=== PATIENT | male | born 1960 | race Caucasian/White ===

== ENCOUNTER 2017-05-28 12:12 | Day surgery (SDC) | payer OTHER ==
[~2017-05-28] VITALS: Ht 180.3 cm; Wt 105.7 kg
[~2017-05-28 12:12] MED LIST: ADDERALL XR 2525 MG PO; AMLODIPINE BES2.5 MG PO; BACLOFEN10 MG PO; COLACE100 MG PO; DOXAZOSIN MESYLA2 MG PO; DULCOLAX5 MG PO; EPIPEN ADU0.3 MG/0.3 IM; FENOFIBRATE160 M1 PO; FLONASE16 G1 BOTH NARES; FUROSEMIDE20 MG PO; KLONOPIN0.5 M1 PO; LAMICTAL100 MG PO; LO-DOSE ASPIRIN81 M2 PO; LOSARTAN POTASS50 MG PO; MAGNESIUM400 M1 PO; MIRAPEX0.5 MG PO; Motrin PO; NITROSTAT0.4 MG SL; OMEPRAZOLE20 MG PO; OXYCODONE HCL10 MG PO; PANTOPRAZOLE SO40 MG PO; PriLOSEC PO; QUETIAPINE FUM300 MG PO; QUETIAPINE FUMA25 MG PO; RANITIDINE HCL150 M1 PO; TIZANIDINE HCL4 M1 PO; TRAZODONE HCL100 MG PO; TYLENOL EXTRA500 MG PO; VIIBRYD40 MG PO; VITAMIN C500 M1 PO; XANAX1 MG PO; ZETIA10 MG PO; ZYRTEC10 M3 PO
[2017-05-28 13:24] VITALS: BP 106/71
[2017-05-28 17:35] VITALS: BP 122/79
[2017-05-28 18:00] VITALS: BP 134/75
== END 2017-05-28 18:10 | disposition home or self-care (01) ==
LOC: SDC 12:12
DX: M20.11 Hallux valgus (acquired), right foot (principal); M77.41 Metatarsalgia, right foot; M20.41 Other hammer toe(s) (acquired), right foot; M24.574 Contracture, right foot; I10 Essential (primary) hypertension; E11.9 Type 2 diabetes mellitus without complications; J45.909 Unspecified asthma, uncomplicated; K21.9 Gastro-esophageal reflux disease without esophagitis; Z79.82 Long term (current) use of aspirin; Z87.891 Personal history of nicotine dependence
CPT/HCPCS: C1713; C1769; J0690; J1170; J2250; J3010; S0020

== ENCOUNTER 2018-04-01 10:11 | Emergency (ER) | payer OTHER ==
[~2018-04-01] VITALS: Ht 180.3 cm; Wt 113.3 kg
[2018-04-01 11:42] LABS: HEMATOCRIT 35.6 % (38.0-50.0); HEMOGLOBIN 12.7 G/DL (12.5-16.6); MCH 31.1 PG (29.0-34.0); MCHC 35.7 G/DL (30.0-36.0); MCV 87.3 FL (86-99); PLATELET COUNT 223 K/uL (156-360); RBC DIS.WIDTH-CV 12.7 % (11.8-14.6); RBC DIS.WIDTH-SD 40.1 % (39-53); RED BLOOD COUNT 4.08 M/uL (4.00-5.50); WHITE BLOOD COUNT 5.5 K/uL (4.1-10.2)
[2018-04-01 11:50] LABS: CHLORIDE 102 mEq/L (99-109); POTASSIUM 3.6 mEq/L (3.7-5.4); SODIUM 138 mEq/L (136-147)
[2018-04-01 11:52] LABS: GLUCOSE 103 mg/dL (70-99)
[2018-04-01 11:56] LABS: CREATININE 1.1 mg/dL (0.6-1.3); GFR ESTIMATE (CALCULATED) > 59 mL/min/ (58.99-99999)
[2018-04-01 11:57] LABS: UREA NITROGEN (BUN) 17 mg/dL (9-23)
[2018-04-01] MEDS ORDERED: ERYTHROMYC1 APPLICAT BOTH EYES (13:09)
[2018-04-01 13:45] VITALS: BP 113/82
== END 2018-04-01 14:14 | disposition left against medical advice (07) ==
LOC: EME 10:11
PROVIDERS: Nurse Practitioner Family
DX: H10.9 Unspecified conjunctivitis (principal); I10 Essential (primary) hypertension; E78.5 Hyperlipidemia, unspecified; Z79.82 Long term (current) use of aspirin; Z87.891 Personal history of nicotine dependence; Z53.29 Procedure and treatment not carried out because of patient's decision for other reasons
CPT/HCPCS: 70481; 80048; 85027; 99281; 99285; J7030